=== PATIENT | male | born 1980 | race Caucasian/White ===

== ENCOUNTER 2017-11-22 16:42 | Emergency (ER) | payer OTHER ==
[~2017-11-22] VITALS: Ht 188 cm; Wt 112.9 kg
[~2017-11-22 16:42] MED LIST: IBUP-1450 PO
[2017-11-22 16:48] VITALS: TEMP 36.7; Ht 188 cm; Wt 112.9 kg
[2017-11-22 17:11] LABS: HEMATOCRIT 40.8 % (42-52); MEAN CELL VOLUME 80.8 fL (80-100); MEAN CORPUSCULAR HEMOGLOBIN 29.7 pg (25-34); MEAN CORPUSCULAR HGB CONC 36.8 g/dl (32-36); MEAN PLATELET VOLUME 10.1 fL (7.4-10.4); PLATELET COUNT 226 K/uL (130-400); RED CELL DISTRIBUTION WIDTH CV 12.6 % (11.5-14.5); RED CELL DISTRIBUTION WIDTH SD 36.6 fL (36.4-46.3); WHITE BLOOD COUNT 12.86 K/uL (4.8-10.8)
[2017-11-22 17:19] LABS: PTT PATIENT 25.2 SECONDS (21.0-31.0)
[2017-11-22 17:31] LABS: CALCIUM 9.3 mg/dl (8.5-10.1); CREATININE 1.17 mg/dl (0.60-1.40); POTASSIUM 3.5 mmol/L (3.5-5.1)
[2017-11-22 17:36] LABS: TOTAL PROTEIN 7.9 gm/dl (6.4-8.2)
[2017-11-22] MEDS ORDERED: KETOROLAC TROMETHAMINE 30 MG/ML VIAL IV STA (18:09)
--- NOTE | 2017-11-22 18:22 | EMERGENCY ROOM VISIT NOTE ---
History First contact with patient: 17:54 Chief Complaint: CHEST PAIN Stated Complaint: CHEST PAIN, HURTS TO EAT, SOB Nursing Triage Summary: woke up this morning gasping for air. I have pain in the center of my chest. History of Present Illness The patient is a 36 year old male who presents to the Emergency Room with complaints of sharp, stabbing, intermittent chest pain that has been going on for the last several days. It became pretty severe at 3 AM in the morning. The patient also reports feeling short of breath. His pain is exacerbated with eating and drinking. He denies any fever or chills. No recent cough. The patient reports that his sister at the age of 31 earlier this year and his life has been "downhill from there." He has been trying to get in with a primary care physician and has been unsuccessful. The patient denies any history of cardiac disease. No recent long travel. He does not smoke. Review of Systems 10 system review performed and negative unless noted in HPI or below Past Medical/Surgical History Medical Problems: (1) No significant medical problems Surgical Problems: (1) No significant past surgical history Social History Smoking Status: Never Smoker Alcohol Use: occasionally Marital Status: Occupation Status: employed Current/Historical Medications Scheduled PRN Ibuprofen (Motrin), 1,200 MG PO Q6H PRN for Pain Physical Exam Vital Signs Date Time Temp Pulse Resp B/P (MAP) Pulse Ox O2 Delivery O2 Flow Rate FiO2 11/22/17 21:06 73 15 134/78 96 11/22/17 20:27 73 14 136/86 96 Room Air 11/22/17 20:13 80 11/22/17 19:12 81 20 139/71 95 Room Air 11/22/17 18:31 98 Room Air 11/22/17 16:48 36.7 119 18 144/84 95 Room Air Physical Exam GENERAL: 36-year-old male, slightly anxious in appearance nondiaphoretic, well- developed well-nourished. SKIN: The skin was without rashes, erythema, edema, or bruising. HEAD: Normocephalic atraumatic. MOUTH: Mucous membranes moist. NECK: Supple without nuchal rigidity. No lymphadenopathy. Cervical spine is nontender. No JVD. HEART: Regular rate and rhythm without murmurs gallops or rubs. Tenderness to palpation over the mid sternum LUNGS: Clear to auscultation bilaterally without wheezes, rales or rhonchi. No accessory muscle use. ABDOMEN: Positive bowel sounds x 4.Soft, nontender, without organomegaly. No guarding or rebound tenderness. MUSCULOSKELETAL: No muscle atrophy, erythema, or edema noted. . Strength 5/5 throughout. NEURO: Patient was alert and oriented to person place and time. Normal sensation to touch. No focal neurological deficits. Medical Decision & Procedures ER Provider Diagnostic Interpretation: Chest x-ray IMPRESSION: 1. No acute cardiopulmonary disease. Electronically signed by: Noel Rooney M.D. 11/22/2017 7:40 PM Dictated Date/Time: 11/22/2017 7:40 PM Laboratory Results 11/22/17 16:58 Red Blood Count 5.05, Mean Corpuscular Volume 80.8, Mean Corpuscular Hemoglobin 29.7, Mean Corpuscular Hemoglobin Concent 36.8, Mean Platelet Volume 10.1, Neutrophils (%) (Auto) 71.4, Lymphocytes (%) (Auto) 21.2, Monocytes (%) (Auto) 5.8, Eosinophils (%) (Auto) 0.5, Basophils (%) (Auto) 0.2, Neutrophils # (Auto) 9.08, Lymphocytes # (Auto) 2.69, Monocytes # (Auto) 0.73, Eosinophils # (Auto) 0.06, Basophils # (Auto) 0.02 11/22/17 16:58 Test 11/22/17 16:58 11/22/17 20:29 White Blood Count 12.86 K/uL (4.8-10.8) Red Blood Count 5.05 M/uL (4.7-6.1) Hemoglobin 15.0 g/dL (14.0-18.0) Hematocrit 40.8 % (42-52) Mean Corpuscular Volume 80.8 fL (80-100) Mean Corpuscular Hemoglobin 29.7 pg (25-34) Mean Corpuscular Hemoglobin Concent 36.8 g/dl (32-36) Platelet Count 226 K/uL (130-400) Mean Platelet Volume 10.1 fL (7.4-10.4) Neutrophils (%) (Auto) 71.4 % Lymphocytes (%) (Auto) 21.2 % Monocytes (%) (Auto) 5.8 % Eosinophils (%) (Auto) 0.5 % Basophils (%) (Auto) 0.2 % Neutrophils # (Auto) 9.08 K/uL (1.4-6.5) Lymphocytes # (Auto) 2.69 K/uL (1.2-3.4) Monocytes # (Auto) 0.73 K/uL (0.11-0.59) Eosinophils # (Auto) 0.06 K/uL (0-0.5) Basophils # (Auto) 0.02 K/uL (0-0.2) RDW Standard Deviation 36.6 fL (36.4-46.3) RDW Coefficient of Variation 12.6 % (11.5-14.5) Immature Granulocyte % (Auto) 0.9 % Immature Granulocyte # (Auto) 0.11 K/uL (0.00-0.02) Nucleated RBC Absolute Count (auto) 0.00 K/uL (0-0) Nucleated Red Blood Cells % 0.0 % Prothrombin Time 10.5 SECONDS (9.0-12.0) Prothromb Time International Ratio 1.0 (0.9-1.1) Activated Partial Thromboplast Time 25.2 SECONDS (21.0-31.0) Partial Thromboplastin Ratio 1.0 D-Dimer 240 ug/L FEU (0-500) Anion Gap 4.0 mmol/L (3-11) Est Creatinine Clear Calc Drug Dose 114.4 ml/min Estimated GFR () 91.1 Estimated GFR (Non- 78.6 BUN/Creatinine Ratio 18.3 (10-20) Uric Acid 7.3 mg/dl (2.6-7.2) Calcium Level 9.3 mg/dl (8.5-10.1) Total Bilirubin 0.5 mg/dl (0.2-1) Aspartate Amino Transf (AST/SGOT) 17 U/L (15-37) Alanine Aminotransferase (ALT/SGPT) 41 U/L (12-78) Alkaline Phosphatase 89 U/L (45-117) Total Creatine Kinase 69 U/L (39-308) Creatine Kinase MB 2.0 ng/ml (0.5-3.6) Creatine Kinase MB Ratio 2.9 (0-3.0) Total Protein 7.9 gm/dl (6.4-8.2) Albumin 4.0 gm/dl (3.4-5.0) Globulin 3.9 gm/dl (2.5-4.0) Albumin/Globulin Ratio 1.0 (0.9-2) Lipase 189 U/L (73-393) Bedside Troponin I < 0.030 ng/ml (0-0.045) Medications Administered Medications (Trade) Dose Ordered Sig/Louie Route Start Time Stop Time Status Last Admin Dose Admin Ketorolac Tromethamine (Toradol Inj) 30 mg NOW STAT IV 11/22/17 18:09 11/22/17 18:19 DC 11/22/17 18:42 30 MG Sodium Chloride 500 ml @ 999 mls/hr Q31M STAT IV 11/22/17 20:20 11/22/17 20:50 DC 11/22/17 20:26 999 MLS/HR ECG Per My Interpretation Indication: chest pain Rate (beats per minute): 105 Rhythm: sinus tachycardia ED Course Patient was seen and examined Vital signs including blood pressure were reviewed medications list was verified with patient Protocols were initiated Labs were obtained, and a saline lock was established An EKG was performed and reviewed. The patient was put on a monitor. He was given Toradol 30 milligrams IV for pain The case was discussed with my supervising physician who is in agreement with my plan A repeat troponin and EKG were performed and reviewed Upon reevaluation, the patient's pain was much improved. We discussed his workup. He voiced understanding. He was comfortable being discharged home. I reviewed discharge instructions the patient. They voiced understanding and had no further questions. Medical Decision Differential diagnosis: Anxiety, gastritis, costochondritis, acute myocardial infarction, cardiac arrhythmia, anemia, thyroid abnormality, pneumothorax, pneumonia, bronchitis, pericarditis, electrolyte imbalance This patient is a 36-year-old male presents to the emergency department complaining of sharp, stabbing, constant chest pain since 3 AM in the morning. My thought was this was likely either GI related versus costochondritis. On exam, he had tenderness to palpation over the mid sternum. His workup reveals mild leukocytosis. There are no other signs of infection such as fever or cough. His troponin is negative. EKG reveals no signs of ischemia or infarction. These were repeated with no significant change. D-dimer is negative. the patient had good symptomatic relief with Toradol. I believe this is likely musculoskeletal in nature. The patient was advised to follow-up as soon as possible with his primary care physician. He will take ibuprofen every 8 hours as needed for pain. He agrees to return with any worsening symptoms. This chart was completed in part utilizing [employer] Speech Voice Recognition software. Attempts were made to minimize the grammatical errors, random word insertions, pronoun errors and incomplete sentences. Any formal questions or concerns about the content, text or information contained within the body of this dictation should be directly addressed to the provider for clarification. Medication Reconcilliation Current Medication List: was personally reviewed by me Blood Pressure Screening Patient's blood pressure: Elevated blood pressure Blood pressure disposition: Did not require urgent referral Impression Primary Impression: Chest pain Departure Information Dispostion Home / Self-Care Condition GOOD Referrals Dieudonne Kurtz D.O. (PCP) Patient Instructions My [facility] Additional Instructions You have been evaluated in the emergency department for chest pain. There are no signs of cardiac abnormalities during your emergency department visit. It is possible that this pain is coming from the rib cage. Please take ibuprofen 600 mg every 8 hours as needed for pain Please do not lie flat for at least 30 minutes after eating Please follow-up as soon as possible with your primary care physician Do not hesitate to return to the emergency department with any new, worsening or concerning symptoms It was a pleasure participating in your care today
--- NOTE | 2017-11-22 19:42 | DIAGNOSTIC IMAGING REPORT ---
CHEST 2 VIEWS ROUTINE CLINICAL HISTORY: 36 years-old Male presenting with CP faint crackles bases bilaterally. TECHNIQUE: PA and lateral views of the chest were obtained. COMPARISON: None. FINDINGS: Cardiomediastinal silhouette normal. Mildly low lung volumes. No focal opacity. No pleural effusion or pneumothorax. Osseous structures normal. Upper abdomen normal. IMPRESSION: 1. No acute cardiopulmonary disease. Electronically signed by: Noel Rooney M.D. 11/22/2017 7:40 PM Dictated Date/Time: 11/22/2017 7:40 PM
[2017-11-22 19:50] LABS: BASO % 0.2 %; BASO ABS # 0.02 K/uL (0-0.2); EOS % 0.5 %; EOS ABS # 0.06 K/uL (0-0.5); IG# 0.11 K/uL (0.00-0.02); LYMPH % 21.2 %; LYMPH ABS # 2.69 K/uL (1.2-3.4); MONO % 5.8 %; MONO ABS # 0.73 K/uL (0.11-0.59); NEUT % 71.4 %; NEUT ABS # 9.08 K/uL (1.4-6.5)
[2017-11-22] MEDS ORDERED: SODIUM CHLORIDE 0.9% 500ML 500 ML IV STA (20:20)
[2017-11-22 21:06] VITALS: BP 134/78; PULSE 73; O2SAT 96
== END 2017-11-22 21:07 | disposition home or self-care (01) ==
LOC: C.EDB 16:43 → C.EDC 21:07
DX: R07.9 Chest pain, unspecified (principal)